=== PATIENT | female | born 1990 | race Two or more races ===

== ENCOUNTER 2019-09-27 16:38 | Inpatient (IN) | payer OTHER ==
[~2019-09-27] VITALS: Ht 152.4 cm; Wt 2.7 kg
[2019-09-27] MEDS ORDERED: PRENATAL TABLE1 EAC1 PO (18:07)
[2019-10-01] MEDS ORDERED: CODE1TAB37 PO (09:17)
[2019-10-01] MEDS ORDERED: IBUPROFEN600 MG PO (09:17)
== END 2019-10-01 12:50 | disposition home or self-care (01) | DRG 788 ==
LOC: LDR 16:38 → OB/GYN 09-28 19:27 → SURG-SUITE 09-29 20:44 → OB/GYN 09-30 12:08
PROVIDERS: ADMIT Obstetrics & Gynecology
PROC: 10D00Z1 Extraction of Products of Conception, Low, Open Approach (ICD-10-PCS; 2019-09-28)
PROC: 3E033VJ Introduction of Other Hormone into Peripheral Vein, Percutaneous Approach (ICD-10-PCS; 2019-09-28)
PROC: 4A1HXFZ Monitoring of Products of Conception, Cardiac Rhythm, External Approach (ICD-10-PCS; principal; 2019-09-28 18:00)
DX: O62.1 Secondary uterine inertia (principal); Z37.0 Single live birth; Z3A.39 39 weeks gestation of pregnancy